=== PATIENT | male | born 1990 | race Two or more races ===

== ENCOUNTER 2017-02-13 17:55 | Emergency (ER) | payer OTHER ==
[~2017-02-13] VITALS: Ht 170.2 cm; Wt 90.7 kg
[2017-02-13 18:09] VITALS: BP 128/69
--- NOTE | 2017-02-13 18:42 | Emergency Room Report ---
History of Present Illness General Chief Complaint: Skin Rash/Abscess Source: Patient Present Illness HPI 26-year-old male presents the emergency department complaining of erythema, swelling and tenderness to the right buttock x1 week. Patient states that it is small palpable mass which has grown in size and become very tender. He rates his pain as 8/10 in severity exacerbated upon palpation. Patient nice fevers or chills denies nausea or vomiting or rashes. he denies history of immunocompromise or previous abscesses.denies taking blood thinning medications , pt. states he is UTD with tetanus. Denies CP, Palpitations, LOC, AMS, dizziness, Changes in Vision, Sensation, paresthesias, or a sudden severe headache. Allergies: Coded Allergies: No Known Allergies (Unverified , 02/13/17) Patient History Past Medical History: see triage record Past Surgical History: none Pertinent Family History: none Immunizations: UTD Reviewed Nursing Documentation: PMH: Agreed, PSxH: Agreed Nursing Documentation-PMH Past Medical History: No History, Except For Review of Systems All Other Systems: negative except mentioned in HPI Physical Exam Vital Signs Date Time Temp Pulse Resp B/P Pulse Ox O2 Delivery O2 Flow Rate FiO2 02/13/17 18:02 97.9 88 16 128/69 97 Room Air Sp02 EP Interpretation: reviewed, normal General Appearance: no apparent distress, alert, GCS 15, non-toxic Head: normocephalic, atraumatic Eyes: bilateral eye PERRL, bilateral eye normal inspection ENT: hearing grossly normal, normal pharynx, no angioedema, normal voice Neck: full range of motion, supple/symm/no masses Respiratory: lungs clear, normal breath sounds, speaking full sentences Cardiovascular #1: regular rate, rhythm, no edema Rectal: deferred Musculoskeletal: back normal, gait/station normal, normal range of motion, non- tender Neurologic: alert, oriented x3, responsive, motor strength/tone normal, sensory intact, speech normal Psychiatric: judgement/insight normal, memory normal, mood/affect normal, no suicidal/homicidal ideation Skin: no rash, warm/dry, well hydrated, other - 1.5cm erythema, fluctuance and increased temperature to palpation of the right upper buttock Lymphatic: no adenopathy Procedures Incision and Drainage Incision and Drainage : Consent: Verbal Site: right buttock Blade Size: 11 I & D Procedure: betadine prep Wound Location: lower extremity - right upper buttock Wound's Depth, Shape: superficial Wound Length (cm): 1 Wound Explored: contaminated - thick white/boyle purulent material was expressed Anesthesia: Lidocaine w/ Epi Volume Anesthetic (ccs): 1 Splint Applied?: No Sling Applied?: No Patient Tolerated: Well Complications: None Medical Decision Making PA Attestation Dr. Cormier is my supervising Physician whom patient management has been discussed with. Diagnostic Impression: Primary Impression: Abscess ER Course 26-year-old male presents the emergency department complaining of erythema, swelling and tenderness to the right buttock x1 week. Patient states that it is small palpable mass which has grown in size and become very tender. He rates his pain as 8/10 in severity exacerbated upon palpation. Patient nice fevers or chills denies nausea or vomiting or rashes. he denies history of immunocompromise or previous abscesses. Ddx considered but are not limited to cellulitis, abscess, cystic acne, necrotizing fasciitis, insect bite. Vital signs: are WNL, pt. is afebrile H&PE are most consistent with right buttock abscess 1.5cm in diameter ORDERS: none required at this time, the diagnosis is clinical ED INTERVENTIONS: -I & D. -Bacitracin and sterile dressing is applied by RN. DISCHARGE: At this time pt. is stable for d/c to home. Will provide printed patient care instructions, and any necessary prescriptions. Care plan and follow up instructions have been discussed with the patient prior to discharge. Last Vital Signs Date Time Temp Pulse Resp B/P Pulse Ox O2 Delivery O2 Flow Rate FiO2 02/13/17 18:09 97.9 82 16 128/69 97 Room Air Disposition: HOME, SELF-CARE Condition: Stable Scripts Acetaminophen* (TYLENOL EXTRA STRENGTH*) 500 Mg Tablet 500 MG ORAL Q6H, #30 TAB 0 Refills Prov: Colette Muhammad P.A. 02/13/17 Doxycycline Hyclate* (VIBRAMYCIN*) 100 Mg Capsule 100 MG ORAL EVERY 12 HOURS for 7 Days, #14 CAP 0 Refills Prov: Colette Muhammad P.A. 02/13/17 Patient Instructions: Abscess Additional Instructions: Take medications as directed. Follow up with PCP in 3-5 days Return sooner to ED if new symptoms occur, or current symptoms become worse. - Please note that this Emergency Department Report was dictated using [employer] entry assistant technology software, occasionally this can lead to erroneous entry secondary to interpretation by the dictation equipment. Colette Muhammad Feb 13, 2017 18:42
[2017-02-13] MEDS ORDERED: VIBRAMYCIN100 MG ORAL (18:43)
[2017-02-13] MEDS ORDERED: TYLENOL EXTRA500 MG ORAL (18:43)
[2017-02-13] MEDS ORDERED: Bacitracin Oint UD TOPIC ONE (18:45)
[2017-02-13 18:51] VITALS: BP 128/69
== END 2017-02-13 18:51 | disposition home or self-care (01) ==
LOC: EMR 18:27
DX: L02.31 Cutaneous abscess of buttock (principal)
CPT/HCPCS: 10060